=== PATIENT | female | born 1935 | race Caucasian/White ===

== ENCOUNTER → 2018-09-02 | Outpatient (CLI) | payer MEDICARE, OTHER | END | disposition home or self-care (01) | LOC: PCVCCLINIC 14:10 | PROVIDERS: ATTEND Internal Medicine | DX: R06.09 Other forms of dyspnea (principal); E78.5 Hyperlipidemia, unspecified; M06.9 Rheumatoid arthritis, unspecified; J45.909 Unspecified asthma, uncomplicated; Z88.6 Allergy status to analgesic agent; Z88.0 Allergy status to penicillin | CPT/HCPCS: 93005; G0463 ==

== ENCOUNTER → 2018-09-21 | Outpatient (CLI) | payer MEDICARE, OTHER ==
[~2018-09-21] MED LIST: REGADENOSON 0.4 MG/5 ML DISP.SYRIN. IV ONE
--- NOTE | 2018-09-21 09:36 | PCVCIMAG ---
APPROVED REPORT Study performed: 09/21/2018 08:19:24 EXAM: Comprehensive 2D, Doppler, and color-flow Echocardiogram Patient Location: Echo lab Status: routine BSA: 1.86 HR: 92 bpmBP: 158/88 mmHg Rhythm: Tachycardia Other Information Study Quality: Good Risk Factors: Cardiac Risk Factors: HTN Indications Dyspnea Hypertension/HDD Rheumatoid arthritis. 2D Dimensions IVSd: 8.97 (7-11mm)LVOT Diam: 18.85 (18-24mm) LVDd: 37.25 mm PWd: 9.13 (7-11mm)Ascending Ao: 33.62 (22-36mm) LVDs: 24.58 (25-40mm) Left Atrium: 30.61 (27-40mm) Aortic Root: 29.83 mm LV Single Plane 4CH: 58.67 % LV Single Plane 2CH: 54.75 % Volumes Left Atrial Volume (Systole) Single Plane 4CH: 25.05 mLSingle Plane 2CH: 28.79 mL LA ESV Index: 15.00 mL/m2 Aortic Valve AoV Peak Dg.: 1.40 m/s AO Peak Gr.: 7.84 mmHgLVOT Max P.11 mmHg LVOT Max V: 1.01 m/s RUTHIE Vmax: 2.02 cm2 Mitral Valve E/A Ratio: 0.8 MV Decel. Time: 222.56 ms MV E Max Dg.: 0.90 m/s MV A Dg.: 1.09 m/s IVRT: 96.89 ms TDI E/Lateral E': 15.00E/Medial E': 11.25 Medial E' Dg.: 0.08 m/s Lateral E' Dg.: 0.06 m/s Pulmonary Valve PV Peak Gr.: 3.41 mmHg Pulmonary Vein P Vein S: 0.62 m/sP Vein A: 0.38 m/s P Vein D: 0.42 m/sP Vein A Dur.: 69.2 msec P Vein S/D Ratio: 1.48 Tricuspid Valve TR Peak Dg.: 2.52 m/s TR Peak Gr.: 25.47 mmHg Left Ventricle The left ventricle is normal size. There is normal LV segmental wall motion. There is normal left ventricular wall thickness. Left ventricular systolic function is normal. The left ventricular ejection fraction is within the normal range. LVEF is 60-65%. Mild diastolic dysfunction is present (impaired relaxation pattern). Right Ventricle The right ventricle is normal size. The right ventricular systolic function is normal. Atria The left atrium size is normal. The right atrium size is normal. Aortic Valve The aortic valve is sclerotic. No aortic regurgitation is present. There is no aortic valvular stenosis. Mitral Valve The mitral valve is normal in structure. There is no mitral valve regurgitation noted. No evidence of mitral valve stenosis. Tricuspid Valve The tricuspid valve is normal in structure. Trace tricuspid regurgitation. Pulmonary artery pressure is 30 mmHg. Pulmonic Valve The pulmonary valve is normal in structure. There is no pulmonic valvular regurgitation. Great Vessels The aortic root is normal in size. IVC is normal in size and collapses >50% with inspiration. Pericardium There is no pericardial effusion. <Conclusion> Left ventricular systolic function is normal. There is normal LV segmental wall motion. LVEF is 60-65%. Mild diastolic dysfunction The aortic valve is sclerotic. No aortic regurgitation or stenosis The mitral valve is normal in structure. No mitral valve regurgitation. Trace tricuspid regurgitation. Pulmonary artery pressure of 30 mmHg. There is no pericardial effusion.
--- NOTE | 2018-09-21 16:41 | PCVCIMAG ---
APPROVED REPORT Imaging Protocol: Rest Tc-99m/Stress Tc-99m 1 day Study performed: 09/21/2018 09:43:16 Indication: Dyspnea Patient Location: Out-Patient Stress Nurse: Reba Javier RN, Margareth Lamb RN MI Tech:Alana Juarezlashell [facility] Ht: 5 ft 8 in Wt: 160 lbs BSA: 1.86 m2 HR: 90 bpm BP: 163/83 mmHg BMI: 24.3 Medical History Medical History: Hyperlipidemia Medications: Cimzia, Plaquenil, Methotrexate Allergies: Codeine Morphine, PCN, Tape Cardiac Risk Factors: Age Pretest Chest Pain Characteristics: No chest pain Exercise History: Sedentary Physical Disabilities: RA Resting Data Rest SPECT myocardial perfusion imaging was performed in supine position 45 minutes following the intravenous injection of 10.2 mCi of Tc-99m Sestamibi. Time of rest injection: 0850 Date: 09/21/2018 Administration Route: IV Administration Site: Left AC Pharmacologic Stress Pharmacologic stress test was performed by injecting Regadenoson 0.4 mg IV push over 10-15 seconds immediately followed by the intravenous injection of 34.3 mCi of Tc-99m Sestamibi. Time of stress injection: 1040 Date: 09/21/2018 Administration Route: IV Administration Site: Left AC Gated Stress SPECT was performed 60 minutes after stress injection. The images were gated to evaluate regional wall motion and calculate left ventricular ejection fraction. Stress Test Details Stress Test: Pharmacologic stress testing performed using 0.4 mg of regadenoson per 5 mL given IV over 10 seconds. Reason for pharmacologic stress test: Rhuematiod Arthritis. HRMax Heart Rate (APMHR): 139 bpm Resting HR: 90 bpmTarget HR (85% APMHR): 118 bpm Max HR Achieved: 115 bpm % of APMHR: 82 Recovery HR: 96 bpm BP Resting BP: 163/83 mmHg Max BP: 152/93 mmHg Recovery BP: 156/84 mmHg ECG Resting ECG: Sinus Rhythm Stress ECG: Sinus Tachycardia ST Change: None Maximum ST Deviation: 0 mm Arrhythmia: PVC's Recovery ECG: Sinus Rhythm Recovery ST Change: None Recovery ST Deviation: 0 mm Recovery Arrhythmia: None Clinical Reason for Termination: Completed protocol Stress Symptoms: None, Chest tightness Exercise duration: 0 min 55 sec Symptoms resolved with caffeine. Stress ECG Conclusion ECG: Non-ischemic Clinical: Non-ischemic Study Quality Study: Good Study Data Post stress, the left ventricular ejection was 70%.. SSS: 0 SRS: 2 SDS: 0 TID = 0.77. Perfusion No evidence of stress induced ischemia or prior myocardial infarction. Wall Motion Normal left ventricular size and function with no regional wall motion abnormalities. Nuclear Conclusion No evidence of stress induced ischemia or prior myocardial infarction. Normal left ventricular size and function with no regional wall motion abnormalities. Post stress, the left ventricular ejection was 70%. No prior study available for comparison. Interpreted by: Refugio Purcell MD Electronically Approved: 09/21/2018 16:30:41 <Conclusion> ECG: Non-ischemic Clinical: Non-ischemic
== END | disposition home or self-care (01) ==
LOC: PCVCIMAG 08:10
PROVIDERS: ATTEND Internal Medicine
DX: I35.8 Other nonrheumatic aortic valve disorders (principal); R06.00 Dyspnea, unspecified; I10 Essential (primary) hypertension; M06.9 Rheumatoid arthritis, unspecified
CPT/HCPCS: 78452; 93017; 93306; A9500; J2785